=== PATIENT | female | born 1965 | race Caucasian/White ===

== ENCOUNTER 2016-09-12 15:46 | Emergency (ER) | payer BC ==
[~2016-09-12] VITALS: Ht 162.6 cm; Wt 99.8 kg
[2016-09-12 15:50] VITALS: BP_SYST 155
[2016-09-12 17:01] LABS: INR 0.9 (0.8-1.2); PROTHROMBIN TIME 10.1 SECS (9.5-12.5)
[2016-09-12 17:04] LABS: BASOPHILS # (AUTO) 0.1 K/uL (0.0-0.2); BASOPHILS % (AUTO) 1.1 % (0.0-2.0); EOSINOPHILS # (AUTO) 0.2 K/uL (0.0-0.4); EOSINOPHILS % (AUTO) 4.2 % (0.0-4.0); HEMATOCRIT 32.2 % (36-48); HEMOGLOBIN 10.4 g/dL (12.0-16.0); LYMPHOCYTES # (AUTO) 1.9 K/uL (1.0-5.5); LYMPHOCYTES % (AUTO) 32.1 % (20.5-51.5); MEAN CORPUSCULAR HEMOGLOBIN 23 pg (27-31); MEAN CORPUSCULAR HGB CONC 33 % (32-36); MEAN CORPUSCULAR VOLUME 70 fL (79.0-98.0); MONOCYTES # (AUTO) 0.7 K/uL (0.0-1.0); NEUTROPHILS # (AUTO) 2.9 K/uL (1.8-7.7); NEUTROPHILS % (AUTO) 50.6 % (40.0-70.0); PLATELET COUNT (AUTO) 314 K/uL (130-430); RED BLOOD CELL COUNT(AUTO) 4.57 MIL/uL (4.2-6.2); RED CELL DISTRIBUTION WIDTH 14.6 % (9.0-15.0); WHITE BLOOD COUNT (AUTO) 5.8 K/uL (4.8-10.8)
[2016-09-12 17:09] LABS: ALANINE AMINOTRANSFERASE 24 U/L (12-78); ALBUMIN 3.6 g/dL (3.4-4.8); ANION GAP 6 (5-15); ASPARTATE AMINOTRANSFERASE 22 U/L (10-37); CALCIUM 9.3 mg/dL (8.4-11.0); CHLORIDE 104 mmol/L (98-107); CREATININE 0.72 mg/dL (0.55-1.30); GLUCOSE 133 mg/dL (70-99); POTASSIUM 3.9 mmol/L (3.5-5.1); SODIUM SERUM 138 mmol/L (136-145); TOTAL BILIRUBIN 0.3 mg/dL (0.0-1.0); TOTAL PROTEIN, SERUM 8.5 g/dL (6.4-8.3)
[2016-09-12 17:12] LABS: GFR AFRICAN AMERICAN 110 mL/min (>90)
[2016-09-12 17:22] LABS: UREA NITROGEN, BLOOD 15 mg/dL (8-21)
[2016-09-12] MEDS ORDERED: IBUPROFEN 600 MG TABLET PO ONE (17:45)
[2016-09-12 18:05] VITALS: BP_SYST 155
== END 2016-09-12 18:05 | disposition home or self-care (01) ==
LOC: SED 15:46
DX: R07.89 Other chest pain (principal); R42 Dizziness and giddiness; I10 Essential (primary) hypertension
CPT/HCPCS: 36415; 71010; 80053; 84484; 85025; 85610-TC; 85730-TC; 93005; 99285

== ENCOUNTER 2017-04-11 20:08 | Emergency (ER) | payer BC ==
[~2017-04-11] VITALS: Ht 160 cm; Wt 102.1 kg
[2017-04-11 20:15] VITALS: BP_SYST 164
[2017-04-11 20:50] VITALS: BP_SYST 136
== END 2017-04-11 20:50 | disposition home or self-care (01) ==
LOC: SED 20:08
DX: H60.91 Unspecified otitis externa, right ear (principal); J32.9 Chronic sinusitis, unspecified; I10 Essential (primary) hypertension
CPT/HCPCS: 99283

== ENCOUNTER → 2020-09-28 | Emergency (ER) | payer BC ==
[~2020-09-28] VITALS: Ht 160 cm; Wt 84.8 kg
[~2020-09-28] MED LIST: HYDR-3919 PO; IBUP-1969 PO
[2020-09-28 18:40] VITALS: BP_SYST 126
--- NOTE | 2020-09-28 18:40 | NUR ---
Patient triaged and placed in waiting room. VSS and patient appears in no acute distress at this time. Accompanied by self , awaiting available bed, and MD notified of need for MSE. report given to Deborah ORTEGA.
== END | disposition home or self-care (01) ==
LOC: SED 18:20
DX: S63.616A Unspecified sprain of right little finger, initial encounter (principal); I10 Essential (primary) hypertension; X58.XXXA Exposure to other specified factors, initial encounter; Y93.89 Activity, other specified; Y92.89 Other specified places as the place of occurrence of the external cause; Y99.8 Other external cause status
CPT/HCPCS: 99283

== ENCOUNTER 2021-01-06 18:30 | Inpatient (IN) | payer BC, SELFPAY ==
[~2021-01-06] VITALS: Ht 160 cm; Wt 85.8 kg
[2021-01-06 18:30] VITALS: BP_SYST 145
[~2021-01-06 18:30] MED LIST changes: +BUPIVACAINE /PF 0.25% 30 ML VIAL INJ ONE; +CEFAZOLIN 2 GM IVPB PREMIX 50 ML IV ONE; +GLYCOPYRROLATE 0.2 MG/ML VIAL IJ ONE; +LR 1,000 ML IV.SOLN IV ONE; +MIDAZOLAM HCL 5 MG/5 ML VIAL IVP ONE; +NS IRRIG SOLN 1000 ML IR ONE; +PHENYLEPHRINE HCL 10 MG/ML VIAL (NEOSYNEPHRINE) IV ONE; +PROPOFOL 200MG/ 20ML VIAL (DIPRIVAN) IV ONE; +ROCURONIUM BROMIDE 10 MG/ML (ZEMURON) IV ONE; +SEVOFLURANE 15 MIN GAS INH ONE; +fentaNYL CITRATE/PF 100 MCG/2 ML AMP IVP ONE
--- NOTE | 2021-01-06 19:13 | NUR ---
Patient ambulatory to bed 2 for evaluation
[2021-01-06 19:43] LABS: BASOPHILS # (AUTO) 0.1 K/uL (0.0-0.2); BASOPHILS % (AUTO) 0.9 % (0.0-2.0); EOSINOPHILS # (AUTO) 0.2 K/uL (0.0-0.4); EOSINOPHILS % (AUTO) 3.8 % (0.0-4.0); HEMATOCRIT 39.1 % (36-48); HEMOGLOBIN 12.7 g/dL (12.0-16.0); LYMPHOCYTES # (AUTO) 2.2 K/uL (1.0-5.5); LYMPHOCYTES % (AUTO) 37.3 % (20.5-51.5); MEAN CORPUSCULAR HEMOGLOBIN 27 pg (27-31); MEAN CORPUSCULAR HGB CONC 33 % (32-36); MEAN CORPUSCULAR VOLUME 82 fL (79.0-98.0); MONOCYTES # (AUTO) 0.8 K/uL (0.0-1.0); MONOCYTES % (AUTO) 13.3 % (1.7-9.3); NEUTROPHILS # (AUTO) 2.6 K/uL (1.8-7.7); NEUTROPHILS % (AUTO) 44.7 % (40.0-70.0); PLATELET COUNT (AUTO) 271 K/uL (130-430); RED BLOOD CELL COUNT(AUTO) 4.78 MIL/uL (4.2-6.2); RED CELL DISTRIBUTION WIDTH 13.4 % (9.0-15.0); WHITE BLOOD COUNT (AUTO) 5.9 K/uL (4.8-10.8)
[2021-01-06 19:55] LABS: CALCIUM 8.9 mg/dL (8.4-11.0); CREATININE 0.72 mg/dL (0.55-1.30)
[2021-01-06 20:01] LABS: ALBUMIN 3.5 g/dL (3.4-4.8); TOTAL BILIRUBIN 0.3 mg/dL (0.0-1.0)
--- NOTE | 2021-01-06 20:14 | NUR ---
Pt walked in c/o sharp, RUQ abdominal pain x1 week, worse today. Denies N/V/D/C.
--- NOTE | 2021-01-06 20:15 | NUR ---
US at bedside
[2021-01-06 20:47] LABS: BILIRUBIN,URINE NEGATIVE (NEGATIVE); BLOOD, URINE 2+ (NEGATIVE); COLOR,URINE YELLOW (YELLOW); GLUCOSE,URINE NEGATIVE (NEGATIVE); KETONES,URINE NEGATIVE (NEGATIVE); LEUKOCYTE ESTERASE ,URINE 2+ (NEGATIVE); NITRITE, URINE NEGATIVE (NEGATIVE); PROTEIN URINE NEGATIVE (NEGATIVE); UROBILINOGEN,URINE 0.2 (0.2-1.0)
[2021-01-06 20:58] LABS: CLARITY/URINE HAZY (CLEAR)
[2021-01-06] MEDS ORDERED: MORPHINE 4 MG INJ. 4 MG/ML VIAL IVP ONE (21:00)
[2021-01-06] MEDS ORDERED: NACL 0.9% 1,000 ML IV ONE (21:00)
[2021-01-06 21:10] LABS: BACTERIA,URINE MODERATE /HPF (None Seen); MUCUS,URINE 1+ /LPF (None Seen)
--- NOTE | 2021-01-06 21:10 | NUR ---
Patient will be admitted to care of DR. COTE. Admitted to MED SURG unit. Belongings list completed. Complete and up to date summary report printed. SBAR report to be given at bedside with opportunity for questions.
--- NOTE | 2021-01-06 21:45 | NUR ---
Family at bedside
--- NOTE | 2021-01-06 22:04 | NUR ---
Patient's code status is FULL CODE paperwork completed and placed in chart.
--- NOTE | 2021-01-06 22:05 | NUR ---
Medication reconciliation completed with information provided by PATIENT. Any prior medication reconciliation on file was reviewed and corrected.
[2021-01-06] MEDS ORDERED: OMEP40CA13 PO (22:07)
[2021-01-06] MEDS ORDERED: LOSA1TAB40 PO (22:07)
--- NOTE | 2021-01-06 22:10 | NUR ---
Transfer to [facility]. IV present no sign or symptom of infiltration.
[2021-01-06 22:21] LABS: INR 0.9 (0.8-1.2)
[2021-01-06 22:25] VITALS: BP_SYST 151
--- NOTE | 2021-01-06 22:25 | NUR ---
ADMISSION NOTE Received patient from ER via wheelchair, received report from RN. Patient admitted with diagnosis of Cholelethiasis. Patient oriented to hospital routine, call light, toileting and safety-patient verbalized understanding.
[2021-01-06] MEDS ORDERED: HYDROcodone/ACETAMIN 5-325 MG TAB (NORCO/ VICODIN) PO PRN (22:30)
[2021-01-06] MEDS ORDERED: NALOXONE HCL 0.4 MG/ML AMP (NARCAN) IVP PRN (22:30)
[2021-01-06] MEDS ORDERED: MORPHINE 4 MG INJ. 4 MG/ML VIAL IVP PRN (22:30)
[2021-01-06] MEDS ORDERED: ONDANSETRON HCL 4 MG/2 ML VIAL IVP PRN (22:30)
[2021-01-06] MEDS: NACL 0.9% 1,000 ML IV SCH (22:30)
[2021-01-06] MEDS ORDERED: ACETAMINOPHEN 325 MG TABLET PO PRN (22:30)
[2021-01-06] MEDS ORDERED: ALBUTEROL SULFATE 0.083% 2.5 MG/3 ML VIAL.NEB INH PRN (22:30)
[2021-01-06] MEDS ORDERED: cefTRIAXone 1 GM IVPB PREMIX 50 ML IV ONE (23:18)
[2021-01-06] MEDS ORDERED: metroNIDAZOLE 500 mg/NS 200 ML IV ONE (23:18)
[2021-01-06] MEDS: cefTRIAXone 1 GM IVPB PREMIX 50 ML IV SCH (23:20)
[2021-01-07] MEDS: metroNIDAZOLE 500 mg/NS 100 ML IV SCH ×4 (00:01→22:26)
[2021-01-07 01:32] VITALS: BP_SYST 136
--- NOTE | 2021-01-07 02:13 | NUR ---
ROUNDS PATIENT ASLEEP, RESPIRATIONS EVEN AND UNLABORED. WILL CONTINUE TO MONITOR
[2021-01-07 03:28] VITALS: BP_SYST 136
--- NOTE | 2021-01-07 04:25 | NUR ---
CONSULT: CONSULT CALLED FOR DR. VERA I SPOKE WITH CHUY EX[employer]ANGE REQUESTING CONSULT: DR. COTE REASON FOR CONSULT: ABDOMINAL PAIN DIRECTOR SPECIALTY PHONE NUMBER: [phone]
--- NOTE | 2021-01-07 05:53 | NUR ---
CONSULT; CONSULT CALLED FOR DR. MANCERA I SPOKE WITH PRITI CUEVAS REASON FOR CONSULT: GALL STONE REQUESTING CONSULT: DR. COTE SILK WEAVER PHONE NUMBER: [phone]
[2021-01-07] MEDS: NACL 0.9% 1,000 ML IV SCH ×2 (06:03→16:35)
[2021-01-07 06:52] LABS: BASOPHILS % (AUTO) 0.8 % (0.0-2.0); EOSINOPHILS # (AUTO) 0.2 K/uL (0.0-0.4); EOSINOPHILS % (AUTO) 4.4 % (0.0-4.0); HEMATOCRIT 35.8 % (36-48); HEMOGLOBIN 11.9 g/dL (12.0-16.0); LYMPHOCYTES % (AUTO) 39.8 % (20.5-51.5); MEAN CORPUSCULAR HEMOGLOBIN 27 pg (27-31); MEAN CORPUSCULAR HGB CONC 33 % (32-36); MEAN CORPUSCULAR VOLUME 82 fL (79.0-98.0); MONOCYTES # (AUTO) 0.7 K/uL (0.0-1.0); MONOCYTES % (AUTO) 14.6 % (1.7-9.3); NEUTROPHILS # (AUTO) 2.1 K/uL (1.8-7.7); NEUTROPHILS % (AUTO) 40.4 % (40.0-70.0); PLATELET COUNT (AUTO) 251 K/uL (130-430); RED BLOOD CELL COUNT(AUTO) 4.38 MIL/uL (4.2-6.2); RED CELL DISTRIBUTION WIDTH 13.7 % (9.0-15.0); WHITE BLOOD COUNT (AUTO) 5.1 K/uL (4.8-10.8)
[2021-01-07 07:01] LABS: CALCIUM 8.4 mg/dL (8.4-11.0); CREATININE 0.6 mg/dL (0.55-1.30); POTASSIUM 3.7 mmol/L (3.5-5.1); TOTAL BILIRUBIN 0.2 mg/dL (0.0-1.0)
[2021-01-07 08:00] VITALS: BP_SYST 120
[2021-01-07 12:30] VITALS: BP_SYST 133
[2021-01-07 15:21] VITALS: BP_SYST 148
--- NOTE | 2021-01-07 15:39 | NUR ---
GEN SURGEON MD DR Chay MANCERA WAS CALLED, TO GET HIS PLAN TO WHEN HE WILL OPERATE THE PATIENT. GI MD DR BURROUGHS IS ASKING FOR HIS PLAN EITHER HE WILL DO SURGERY OR NO SURGERY. Addendum: 01/07/21 at 1543 by Stephania Gupta [place]/ SPOKE TO JENNIFER FROM THE OFFICE OF DR MANCERA.
--- NOTE | 2021-01-07 15:40 | NUR ---
rounds dr bui was called re result of the mrcp and stated will not do anything for the patient. stated to call dr neal and find out if will take patient for sx today. awaiting for dr neal to call back. hida scan being done at bedside.
[2021-01-07] MEDS: PANTOPRAZOLE SODIUM 40 MG/VIAL (PROTONIX) IVP SCH ×2 (16:34→21:53)
--- NOTE | 2021-01-07 17:57 | NUR ---
closing notes seen by dr neal and spoke with patient. patient signed the consent for sx tomorrow. instructed re npo post midnight. no sob noted. denies pain at this time.
--- NOTE | 2021-01-07 19:25 | NUR ---
OPENING NOTES RECEIVED PATIENT RESTING IN BED, NO SIGNS OF DISTRESS NOTED. CALL LIGHT WITHIN REACH, BED AT LOWEST POSITION, BED ALARM ON, BED LOCKED. RECEIVED REPORT THAT CONSENT HAS BEEN SIGNED AFTER DR. MANCERA HAS EXPLAINED PROCEDURE TO PATIENT, PATIENT AWARE TO BE NPO PAST MIDNIGHT. FALL, ASPIRATION, SAFETY, AND RESPIRATORY PRECAUTIONS IN PLACE. WILL CONTINUE TO MONITOR.
[2021-01-07 20:00] VITALS: BP_SYST 143
--- NOTE | 2021-01-07 22:05 | NUR ---
PATIENT TAKING A SHOWER AT THIS TIME, NO DISTRESS NOTED. WILL CONTINUE TO MONITOR.
[2021-01-07] MEDS: cefTRIAXone 1 GM IVPB PREMIX 50 ML IV SCH (23:48)
[2021-01-08] VITALS: BP_SYST 129
[2021-01-08] MEDS: NACL 0.9% 1,000 ML IV SCH ×3 (05:19→22:57)
[2021-01-08] MEDS: metroNIDAZOLE 500 mg/NS 100 ML IV SCH ×3 (05:19→21:22)
--- NOTE | 2021-01-08 06:30 | NUR ---
CLOSING NOTES PATIENT RESTING IN BED, NO SIGNS OF DISTRESS NOTED. CALL LIGHT WITHIN REACH, BED AT LOWEST POSITION, BED ALARM ON, BED LOCKED. PATIENT HAS BEEN NPO PAST MIDNIGHT. FALL, ASPIRATION, SAFETY, AND RESPIRATORY PRECAUTIONS IN PLACE THROUGHOUT SHIFT. ALL NEEDS MET THROUGHOUT SHIFT. WILL ENDORSE CARE TO ONCOMING SHIFT.
[2021-01-08 08:00] VITALS: BP_SYST 130
--- NOTE | 2021-01-08 08:00 | NUR ---
OPENING NOTE RECEIVED REPORT FROM NIGHT NURSE. PATIENT IS ALERT AND ORIENTED X4. ON ROOM AIR AND TOLERATING WELL WITH NO SIGNS OF SHORTNESS OF BREATH NOTED. IV IS PATENT, INFUSING FLUIDS ORDERED WITH NO SIGNS OF INFILTRATION NOTED. BED LOCKED AND IN LOWEST POSITION. CALL LIGHT WITHIN REACH. WILL CONTINUE TO MONITOR.
[2021-01-08] MEDS: PANTOPRAZOLE SODIUM 40 MG/VIAL (PROTONIX) IVP SCH ×2 (08:51→21:22)
--- NOTE | 2021-01-08 09:08 | NUR ---
PATIENT TAKEN TO OR IN STABLE CONDITION. WILL WAIT FOR RETURN TO UNIT.
[2021-01-08] MEDS ORDERED: fentaNYL CITRATE/PF 100 MCG/2 ML AMP IVP PRN ×2 (10:00)
[2021-01-08] MEDS ORDERED: METOCLOPRAMIDE HCL 10 MG/2 ML VIAL IVP PRN (10:00)
[2021-01-08] MEDS ORDERED: ONDANSETRON HCL 4 MG/2 ML VIAL IVP PRN (10:00)
[2021-01-08] MEDS ORDERED: HYDROmorphone 2 MG/ML VIAL IVP PRN (11:30)
[2021-01-08] MEDS ORDERED: fentaNYL CITRATE/PF 100 MCG/2 ML AMP ONE (11:31)
[2021-01-08 12:00] VITALS: BP_SYST 131
--- NOTE | 2021-01-08 12:00 | NUR ---
RETURN FROM OR PATIENT RETURNED FROM OR. IN STABLE CONDITION. VITAL SIGNS STABLE. ON ROOM AIR. NO PAIN AT THIS TIME. PATIENT RESTING. WILL MONITOR.
--- NOTE | 2021-01-08 18:30 | NUR ---
CLOSING NOTE PATIENT IS SITTING UP IN BED EATING DINNER. ON ROOM AIR AND TOLERATING WELL WITH NO SIGNS OF SHORTNESS OF BREATH NOTED. IV IS PATENT, INFUSING FLUIDS ORDERED WITH NO SIGNS OF INFILTRATION NOTED. BED LOCKED AND IN LOWEST POSITION. CALL LIGHT WITHIN REACH. WILL ENDORSE TO NIGHT NURSE.
--- NOTE | 2021-01-08 19:40 | NUR ---
OPENING NOTES Received report from SHANNON Marrero. Patient resting in bed, AAOx4, breathing evenly and non labored on room air. Patient has an IV on the left wrist, flushed, patent and benign, no s/s of infection or infiltration noted at this time. Educated patient on plan of care, fall/safety precautions, call light system, patient stated understanding with return demonstration. Bed is locked and at lowest position, will continue to monitor. Addendum: 01/09/21 at 0303 by Joaquín Rosado RN OPENING NOTES Received report from SHANNON Marrero. Patient resting in bed, AAOx4, breathing evenly and non labored on room air. Patient has an IV on the right hand 20g, patent and benign, no s/s of infection or infiltration noted at this time, IVF running, patient tolerating it well. Educated patient on plan of care, fall/safety precautions, call light system, patient stated understanding with return demonstration. Bed is locked and at lowest position, will continue to monitor.
[2021-01-08 20:01] VITALS: BP_SYST 141
[2021-01-08] MEDS: MORPHINE 4 MG INJ. 4 MG/ML VIAL IVP PRN (20:03)
[2021-01-08] MEDS: cefTRIAXone 1 GM IVPB PREMIX 50 ML IV SCH (22:57)
[2021-01-09 00:03] VITALS: BP_SYST 132
[2021-01-09] MEDS: metroNIDAZOLE 500 mg/NS 100 ML IV SCH (05:33)
--- NOTE | 2021-01-09 06:13 | NUR ---
CLOSING NOTES Patient resting in bed, eyes closed, breathing evenly and non labored on room air. Due medications were given, patient tolerated them well. Patient complained of pain and was given PRN pain medication last night at 2002. IVF running, patient tolerating it well. No s/s of distress at this time, no other needs at this time. Needs met throughout the shift. Fall/safety precautions, will endorse care to morning shift RN.
[2021-01-09 06:45] LABS: BASOPHILS % (AUTO) 0.4 % (0.0-2.0); EOSINOPHILS # (AUTO) 0.1 K/uL (0.0-0.4); EOSINOPHILS % (AUTO) 1.6 % (0.0-4.0); HEMOGLOBIN 11.6 g/dL (12.0-16.0); LYMPHOCYTES # (AUTO) 1.5 K/uL (1.0-5.5); LYMPHOCYTES % (AUTO) 21.9 % (20.5-51.5); MEAN CORPUSCULAR HEMOGLOBIN 27 pg (27-31); MEAN CORPUSCULAR HGB CONC 33 % (32-36); MEAN CORPUSCULAR VOLUME 81 fL (79.0-98.0); MONOCYTES # (AUTO) 0.8 K/uL (0.0-1.0); MONOCYTES % (AUTO) 12.1 % (1.7-9.3); NEUTROPHILS # (AUTO) 4.5 K/uL (1.8-7.7); PLATELET COUNT (AUTO) 231 K/uL (130-430); RED CELL DISTRIBUTION WIDTH 13.7 % (9.0-15.0)
[2021-01-09 07:03] LABS: ALBUMIN 2.9 g/dL (3.4-4.8); C-REACTIVE PROTEIN QUANT 0.4 mg/dL (0-0.5); CREATININE 0.57 mg/dL (0.55-1.30); POTASSIUM 3.4 mmol/L (3.5-5.1); TOTAL BILIRUBIN 0.4 mg/dL (0.0-1.0)
[2021-01-09 08:00] VITALS: BP_SYST 136
[2021-01-09] MEDS: PANTOPRAZOLE SODIUM 40 MG/VIAL (PROTONIX) IVP SCH (08:48)
[2021-01-09] MEDS: NACL 0.9% 1,000 ML IV SCH (08:49)
[2021-01-09] MEDS: MORPHINE 4 MG INJ. 4 MG/ML VIAL IVP PRN (08:58)
[2021-01-09 10:13] LABS: ERYTHROCYTE SEDIMENTATION RATE 9 MM/HR (0-20)
[2021-01-09] MEDS ORDERED: HYDR-3917 PO (10:40)
[2021-01-09 11:22] VITALS: BP_SYST 136
[2021-01-09 12:06] VITALS: BP_SYST 129
--- NOTE | 2021-01-09 13:19 | NUR ---
CALLED [facility] AFTER HOURS ([phone]) TO KNOW THE CM STACKER TENDER TODAY TO ARRANGE HOME HEALTH. SPOKE TO RACHEL WHO SAID THAT [employer] IS THE STACKER TENDER CM FOR [facility] AND SHE WILL RELAY MY MESSAGE.
--- NOTE | 2021-01-09 14:10 | NUR ---
PER [facility] AFTER HOURS, FAXED CLINICALS. SPOKE TO RACHEL
--- NOTE | 2021-01-09 14:40 | NUR ---
[facility] CM NAKUL DENISELEY CALLED AND ASKED ME TO FAX THE CLINICALS TO HER. SHE WILL TAKE CARE OF THE HOME HEALTH.
== END 2021-01-09 14:05 | disposition home health service (06) | DRG 419 ==
LOC: EDBD 18:30 → SED 18:30 → SMU 21:10
PROVIDERS: ADMIT Internal Medicine Hospice and Palliative Medicine; ATTEND Internal Medicine Hospice and Palliative Medicine
PROC: 0FT44ZZ Resection of Gallbladder, Percutaneous Endoscopic Approach (ICD-10-PCS; principal; 2021-01-08 09:00)
DX: K80.20 Calculus of gallbladder without cholecystitis without obstruction (principal); I10 Essential (primary) hypertension; E16.2 Hypoglycemia, unspecified; E87.6 Hypokalemia; E83.51 Hypocalcemia; E88.09 Other disorders of plasma-protein metabolism, not elsewhere classified; Z20.822 Contact with and (suspected) exposure to COVID-19; D64.9 Anemia, unspecified; E66.3 Overweight; K82.8 Other specified diseases of gallbladder; Z79.1 Long term (current) use of non-steroidal anti-inflammatories (NSAID); Z79.899 Other long term (current) drug therapy; Z68.33 Body mass index [BMI] 33.0-33.9, adult; Z90.49 Acquired absence of other specified parts of digestive tract; Z98.84 Bariatric surgery status
CPT/HCPCS: 36415; 71045; 74181; 76700-TC; 78226; 80053; 81000; 83690; 85025; 85610-TC; 85651-TC; 85730-TC; 86140; 86886; 86900; 86901; 87081; 87086; 88304; 93005; 94010; 96361; 96374; 99285; A9537; C1727; C9113; J0690; J0696; J1170; J2250; J2270; J2370; J2704; J3010; J3490; J7120

== ENCOUNTER 2021-02-02 19:06 | Emergency (ER) | payer BC, SELFPAY ==
[~2021-02-02] VITALS: Ht 160 cm; Wt 82.6 kg
[~2021-02-02 19:06] MED LIST changes: -BUPIVACAINE /PF 0.25% 30 ML VIAL INJ ONE; -CEFAZOLIN 2 GM IVPB PREMIX 50 ML IV ONE; -GLYCOPYRROLATE 0.2 MG/ML VIAL IJ ONE; +HYDR-3917 PO; -HYDR-3919 PO; -IBUP-1969 PO; +LOSA1TAB40 PO; -LR 1,000 ML IV.SOLN IV ONE; -MIDAZOLAM HCL 5 MG/5 ML VIAL IVP ONE; -NS IRRIG SOLN 1000 ML IR ONE; +OMEP40CA13 PO; -PHENYLEPHRINE HCL 10 MG/ML VIAL (NEOSYNEPHRINE) IV ONE; -PROPOFOL 200MG/ 20ML VIAL (DIPRIVAN) IV ONE; -ROCURONIUM BROMIDE 10 MG/ML (ZEMURON) IV ONE; -SEVOFLURANE 15 MIN GAS INH ONE; -fentaNYL CITRATE/PF 100 MCG/2 ML AMP IVP ONE
[2021-02-02 19:27] VITALS: BP_SYST 147
--- NOTE | 2021-02-02 19:27 | NUR ---
Pt walked in from home c/o RUQ abdominal pain that radiates to her back since approx 01/27. Pt is s/p cholecystectomy. +nausea and bloating. Denies vomiting, diarrhea, constipation.
--- NOTE | 2021-02-02 19:58 | NUR ---
Patient brought in by self complaining right upper pain x 4 days with warmth and swelling radiating to the back with nauseu. denies any fevers. Patient states that she had a cholecystectomy [address] Zapata. Went to follow up on February 19. Pain 8/10. Patient takes ibuprofen 800 mg and tylenol with codeine with mild improvement.
--- NOTE | 2021-02-02 20:35 | NUR ---
ER Dr. DICKSON at bedside examining patient.
[2021-02-02] MEDS ORDERED: NACL 0.9% 1,000 ML IV ONE ×2 (20:45→22:45)
[2021-02-02] MEDS ORDERED: DIPHENHYDRAMINE INJ 50 MG/ML VIAL IVP ONE (20:45)
[2021-02-02] MEDS ORDERED: ONDANSETRON HCL 4 MG/2 ML VIAL IVP ONE (20:45)
[2021-02-02] MEDS ORDERED: MORPHINE 4 MG INJ. 4 MG/ML VIAL IVP ONE (20:45)
[2021-02-02 21:09] LABS: BASOPHILS % (AUTO) 0.5 % (0.0-2.0); EOSINOPHILS # (AUTO) 0.3 K/uL (0.0-0.4); EOSINOPHILS % (AUTO) 4.4 % (0.0-4.0); HEMATOCRIT 37.6 % (36-48); HEMOGLOBIN 12.6 g/dL (12.0-16.0); LYMPHOCYTES # (AUTO) 2.2 K/uL (1.0-5.5); LYMPHOCYTES % (AUTO) 34.8 % (20.5-51.5); MEAN CORPUSCULAR HEMOGLOBIN 27 pg (27-31); MEAN CORPUSCULAR HGB CONC 34 % (32-36); MEAN CORPUSCULAR VOLUME 82 fL (79.0-98.0); MONOCYTES # (AUTO) 0.7 K/uL (0.0-1.0); MONOCYTES % (AUTO) 11.4 % (1.7-9.3); NEUTROPHILS # (AUTO) 3.1 K/uL (1.8-7.7); NEUTROPHILS % (AUTO) 48.9 % (40.0-70.0); PLATELET COUNT (AUTO) 265 K/uL (130-430); RED BLOOD CELL COUNT(AUTO) 4.59 MIL/uL (4.2-6.2); RED CELL DISTRIBUTION WIDTH 14.7 % (9.0-15.0); WHITE BLOOD COUNT (AUTO) 6.4 K/uL (4.8-10.8)
[2021-02-02 21:13] LABS: BILIRUBIN,URINE NEGATIVE (NEGATIVE); BLOOD, URINE 1+ (NEGATIVE); CLARITY/URINE CLEAR (CLEAR); COLOR,URINE YELLOW (YELLOW); GLUCOSE,URINE NEGATIVE (NEGATIVE); KETONES,URINE NEGATIVE (NEGATIVE); LEUKOCYTE ESTERASE ,URINE 1+ (NEGATIVE); NITRITE, URINE NEGATIVE (NEGATIVE); PH,URINE 5.5 (5.0-8.0); PROTEIN URINE NEGATIVE (NEGATIVE); UROBILINOGEN,URINE 0.2 (0.2-1.0)
--- NOTE | 2021-02-02 21:24 | NUR ---
Patient transported to radiology via WHEELCHAIR, accompanied by JANESSA SIERRA
[2021-02-02 21:26] LABS: BACTERIA,URINE FEW /HPF (None Seen); CALCIUM OXALATE CRYSTALS,UR None Seen /HPF (None Seen); CALCIUM PHOSPHATE CRYSTALS,UR None Seen /HPF (None Seen); FINE GRANULAR CASTS,URINE None Seen /LPF (None Seen); HYALINE CASTS, URINE None Seen /LPF (None Seen); OTHER CRYSTALS,URINE None Seen /HPF (None Seen); RBC,URINE 0-3 /HPF (0-3); TRICHOMONAS,URINE None Seen /HPF (None Seen); TRIPLE PHOSPHATE CRYSTAL,UR None Seen /HPF (None Seen); URIC ACID CRYSTALS,URINE None Seen /HPF (None Seen); URINE AMORPHOUS PHOSPHATES None Seen /HPF (None Seen); URINE AMORPHOUS URATE None Seen /HPF (None Seen); YEAST,URINE None Seen /HPF (None Seen)
[2021-02-02 21:27] LABS: COARSE GRANULAR CASTS,URINE None Seen /LPF (None Seen); MUCUS,URINE None Seen /LPF (None Seen); OTHER CASTS, URINE None Seen /LPF (None Seen); WAXY CASTS,URINE None Seen /LPF (None Seen)
--- NOTE | 2021-02-02 21:34 | NUR ---
PATIENT RETURNED IN STABLE CODITION. PATIENT PLACED BACK ON GENERAL OPHTHALMOLOGIST.
--- NOTE | 2021-02-02 21:38 | NUR ---
PATIENT COMPLAINING OF 10/10 UPPER RIGHT ABDOMINAL PAIN CRAMPING.
[2021-02-02 21:51] LABS: CALCIUM 9.3 mg/dL (8.4-11.0); CREATININE 0.56 mg/dL (0.55-1.30); POTASSIUM 4.5 mmol/L (3.5-5.1)
[2021-02-02 21:57] LABS: ALBUMIN 3.7 g/dL (3.4-4.8); TOTAL BILIRUBIN 0.3 mg/dL (0.0-1.0)
[2021-02-02] MEDS ORDERED: KETOROLAC TROMETHAMINE 30 MG VIAL IVP ONE (22:00)
[2021-02-02] MEDS ORDERED: KETOROLAC TROMETHAMINE 30 MG VIAL ONE (22:06)
[2021-02-02] MEDS ORDERED: cefTRIAXone 1 GM in D5W 50 ML IV ONE (22:45)
[2021-02-02] MEDS ORDERED: cefTRIAXone 1 GM VIAL ONE (23:10)
--- NOTE | 2021-02-02 23:12 | NUR ---
PATIENT RESTING QUIETLY IN BED. DENIES ANY PAIN.
[2021-02-02] MEDS ORDERED: HYDR-3917 PO (23:13)
[2021-02-02] MEDS ORDERED: CEFU250T85 PO (23:13)
[2021-02-03 00:01] VITALS: BP_SYST 126
--- NOTE | 2021-02-03 00:01 | NUR ---
Patient given written and verbal discharge instructions and verbalizes understanding. ER MD discussed with patient the results and treatment provided. Patient in stable condition. ID arm band removed. IV catheter removed intact and dressing applied, no active bleeding. Rx of CEFTIN AND NORCO given. Patient educated on pain management and to follow up with PMD. Pain Scale 0/10 Opportunity for questions provided and answered. Medication side effect fact sheet provided.
== END 2021-02-03 00:01 | disposition home or self-care (01) ==
LOC: SED 19:06
DX: N12 Tubulo-interstitial nephritis, not specified as acute or chronic (principal); I10 Essential (primary) hypertension; Z90.49 Acquired absence of other specified parts of digestive tract; Z79.899 Other long term (current) drug therapy
CPT/HCPCS: 36415; 74176; 76376; 80053; 81000; 83690; 85025; 87086; 93005; 96361; 96365; 96375; 99285; J0696; J1200; J1885; J2270; J2405; J7030

== ENCOUNTER 2022-03-27 19:04 | Emergency (ER) | payer BC ==
[~2022-03-27] VITALS: Ht 160 cm; Wt 87.1 kg
[~2022-03-27 19:04] MED LIST changes: +CEFU250T85 PO; -OMEP40CA13 PO; +OMEP40CA20 PO
--- NOTE | 2022-03-27 19:07 | NUR ---
Placed in room 05 . Placed on registered nurse cardiac, blood pressure machine and pulse oximeter. To gown for exam. Side rails up.
[2022-03-27 19:08] VITALS: BP_SYST 131
--- NOTE | 2022-03-27 19:10 | NUR ---
MD at bedside with patient for evaluation.
--- NOTE | 2022-03-27 19:14 | NUR ---
BIBS WITH C/C OF CHEST PAIN. PT REPORTS SHE WAS IN BED AT 0400 AND WOKE UP WITH CHEST TIGHTNESS. PT STATES SHE GOT UP AND SOON AFTER RESIDED BUT THEN CHEST TIGHTNESS CAME BACK AT 1730. PT REPORTS 5/10 CP WITH RADIATION TO LEFT SHOULDER. PT WITH PMH OF HTN. DENIES ANY CARDIAC HX. REPORTS SOB WITH DEEP INSPIRATION. DENIES ANY RECENT ILLNESS. REPORTS BEING UNDER STRESS WITH FATHER AND JOB. VSS, AFEBRILE. 12L EKG DONE. WILL NOTIFY DR. YORK.
--- NOTE | 2022-03-27 19:24 | NUR ---
Pt reports having chest pain and pressure throughout the day. Pt states she is also having some swelling in bilateral feet. MD made aware. A&O x4, following commands. Safety precautions in place and connected to monitor.
[2022-03-27 20:02] LABS: BASOPHILS % (AUTO) 0.6 % (0.0-2.0); EOSINOPHILS # (AUTO) 0.2 K/uL (0.0-0.4); EOSINOPHILS % (AUTO) 3.2 % (0.0-4.0); HEMATOCRIT 34.4 % (36-48); LYMPHOCYTES # (AUTO) 1.8 K/uL (1.0-5.5); LYMPHOCYTES % (AUTO) 35.2 % (20.5-51.5); MEAN CORPUSCULAR VOLUME 81 fL (79.0-98.0); MONOCYTES # (AUTO) 0.7 K/uL (0.0-1.0); MONOCYTES % (AUTO) 13.3 % (1.7-9.3); NEUTROPHILS # (AUTO) 2.4 K/uL (1.8-7.7); NEUTROPHILS % (AUTO) 47.7 % (40.0-70.0); PLATELET COUNT (AUTO) 251 K/uL (130-430); RED BLOOD CELL COUNT(AUTO) 4.24 MIL/uL (4.2-6.2); RED CELL DISTRIBUTION WIDTH 13.6 % (9.0-15.0); WHITE BLOOD COUNT (AUTO) 5.1 K/uL (4.8-10.8)
[2022-03-27 20:15] LABS: ANION GAP 6 (5-15); CALCIUM 8.5 mg/dL (8.4-11.0); CHLORIDE 103 mmol/L (98-107); CREATININE 0.76 mg/dL (0.55-1.30); GLUCOSE 134 mg/dL (70-99); POTASSIUM 3.9 mmol/L (3.5-5.1); UREA NITROGEN, BLOOD 20 mg/dL (8-21)
[2022-03-27 20:17] LABS: GFR AFRICAN AMERICAN 102 mL/min (>90)
[2022-03-27 20:25] LABS: ALANINE AMINOTRANSFERASE 16 U/L (12-78); ALBUMIN 3.4 g/dL (3.4-4.8); ASPARTATE AMINOTRANSFERASE 21 U/L (10-37); TOTAL BILIRUBIN 0.4 mg/dL (0.0-1.0)
--- NOTE | 2022-03-27 20:42 | NUR ---
Pt moved to bed 3 via [facility].
[2022-03-27] MEDS ORDERED: MAG HYDROX/AL HYDROX/SIMETH 30 ML, DICYCLOMINE HCL 20 MG, LIDOCAINE VISCOUS 2% 15ML (PO... PO ONE ×3 (20:45)
[2022-03-27] MEDS ORDERED: OMEP20CA15 PO (21:00)
--- NOTE | 2022-03-27 21:00 | NUR ---
Pt refused repeat troponin. made aware.
[2022-03-27 21:33] VITALS: BP_SYST 120
--- NOTE | 2022-03-27 21:33 | NUR ---
Patient given written and verbal discharge instructions and verbalizes understanding. ER Dr. Pickard discussed with patient the results and treatment provided. Patient in stable condition. ID arm band removed. Patient educated on pain management and to follow up with PMD. Pain Scale 0. Opportunity for questions provided and answered. Medication side effect fact sheet provided.
== END 2022-03-27 21:33 | disposition home or self-care (01) ==
LOC: SED 19:04
DX: K20.90 Esophagitis, unspecified without bleeding (principal); R07.2 Precordial pain; I10 Essential (primary) hypertension; E78.5 Hyperlipidemia, unspecified; Z79.899 Other long term (current) drug therapy
CPT/HCPCS: 99284; 71045; 80053; 85025; 84484; 36415; J2001

== ENCOUNTER 2023-01-06 20:09 | Emergency (ER) | payer BC ==
[~2023-01-06] VITALS: Ht 160 cm; Wt 88.5 kg
[~2023-01-06 20:09] MED LIST changes: +OMEP20CA15 PO
[2023-01-06 20:26] VITALS: BP_SYST 118; PULSE 89; RESP 18; TEMP 97.6; O2SAT 96
[2023-01-06] MEDS ORDERED: methocarbamoL 500 MG TABLET PO ONE (21:00)
[2023-01-06] MEDS ORDERED: KETOROLAC TROMETHAMINE 15 MG VIAL IM ONE (21:00)
[2023-01-06] MEDS ORDERED: predniSONE 20 MG TABLET PO ONE (21:00)
[2023-01-06] MEDS ORDERED: ONDANSETRON 4 MG ODT TAB PO ONE (21:00)
[2023-01-06] MEDS ORDERED: IBUP-1969 PO (21:59)
[2023-01-06] MEDS ORDERED: LIDO700A30 TP (21:59)
[2023-01-06] MEDS ORDERED: METH-634 PO (21:59)
== END 2023-01-06 22:20 | disposition home or self-care (01) ==
LOC: SED 20:09
DX: S09.90XA Unspecified injury of head, initial encounter (principal); M54.50 Low back pain, unspecified; M54.6 Pain in thoracic spine; M54.17 Radiculopathy, lumbosacral region; M54.2 Cervicalgia; I10 Essential (primary) hypertension; E78.5 Hyperlipidemia, unspecified; Z79.899 Other long term (current) drug therapy; V89.2XXA Person injured in unspecified motor-vehicle accident, traffic, initial encounter; Y93.89 Activity, other specified; Y92.89 Other specified places as the place of occurrence of the external cause; Y99.8 Other external cause status
CPT/HCPCS: 99284; 72072; 72110; 96372; Q0162; J7512; J1885